=== PATIENT | male | born 1980 | race Hispanic/Latino ===

== ENCOUNTER 2019-01-29 19:37 | Emergency (ER) | payer OTHER ==
[2019-01-29] MEDS ORDERED: DICYCLOMINE HCL 10 MG/ML 2ML AMP IM ONE (20:07)
[2019-01-29] MEDS ORDERED: ONDANSETRON 4 MG TABLET ONE (20:07)
[2019-01-29] MEDS ORDERED: KETOROLAC TROMETHAMINE 60 MG/2 ML VIAL ONE (20:08)
== END 2019-01-29 20:18 | disposition home or self-care (01) ==
LOC: EDH 19:37
DX: K52.9 Noninfective gastroenteritis and colitis, unspecified (principal); Z72.0 Tobacco use
CPT/HCPCS: 99283; J0500; J1885; Q0162